=== PATIENT | male | born 1940 | race Caucasian/White ===

== ENCOUNTER 2020-11-20 15:15 | Emergency (ER) | payer BC, MEDICARE ==
[~2020-11-20] VITALS: Ht 182.9 cm; Wt 108.4 kg
[2020-11-20] MEDS ORDERED: PROAIR HFA8.5 GM INH (20:49)
== END 2020-11-20 21:00 | disposition home or self-care (01) ==
LOC: ER1 15:15
DX: U07.1 COVID-19 (principal); E78.5 Hyperlipidemia, unspecified; E11.9 Type 2 diabetes mellitus without complications
CPT/HCPCS: 99284